=== PATIENT | female | born 1995 | race Caucasian/White ===

== ENCOUNTER 2019-06-04 14:28 | Emergency (ER) | payer MEDICAID ==
[~2019-06-04] VITALS: Wt 85.5 kg
[~2019-06-04 14:28] MED LIST: D-ME473S2 PO; FLUT9.9S NASAL; PANT40TA3 PO
[2019-06-04 14:35] VITALS: BP 118/71; PULSE 105; RESP 20
== END 2019-06-04 16:37 | disposition home or self-care (01) ==
LOC: FTE 14:28
DX: R05 Cough (principal)
CPT/HCPCS: 99283